=== PATIENT | female | born 1935 | race Caucasian/White ===

== ENCOUNTER → 2017-03-16 | Outpatient (CLI) | payer MEDICARE ==
[~2017-03-16] MED LIST: AMLO10TA62 PO; DICL75TA5 PO; HYDR25TA PO; LACT1CAP68 PO; LEVO88TA41 PO; LUTE1CAP PO; MELO-267 PO
== END ==
LOC: WC.BC 08:56
PROVIDERS: ATTEND Family Medicine
DX: Z12.31 Encounter for screening mammogram for malignant neoplasm of breast (principal); Z13.820 Encounter for screening for osteoporosis; M85.88 Other specified disorders of bone density and structure, other site; N95.8 Other specified menopausal and perimenopausal disorders; E28.39 Other primary ovarian failure; Z87.828 Personal history of other (healed) physical injury and trauma; Z90.722 Acquired absence of ovaries, bilateral
CPT/HCPCS: 77063; 77080; G0202